=== PATIENT | male | born 1995 | race Caucasian/White ===

== ENCOUNTER 2017-06-01 15:35 | Outpatient (CLI) | payer BC ==
[~2017-06-01 15:35] MED LIST: CEPH-507 PO
== END 2017-06-02 06:37 | disposition home or self-care (01) ==
LOC: SLEEP 15:35
PROVIDERS: ATTEND Nurse Practitioner
DX: R06.83 Snoring (principal); E66.9 Obesity, unspecified; Z68.41 Body mass index [BMI] 40.0-44.9, adult
CPT/HCPCS: 95810